=== PATIENT | male | born 1945 | race Caucasian/White ===

== ENCOUNTER 2022-07-06 15:00 | Outpatient (RCR) | payer MEDICARE, BC, SELFPAY ==
--- NOTE | 2022-03-05 14:12 | URNOTE ---
Received request for prior auth for Leuprolide ([id number]), Pt has primary Medicare. Prior auth is not required as services are based on medical necessity and follow medicare guidelines.
[2022-03-06 13:30] VITALS: BP 132/75; PULSE 69; RESP 14; TEMP 36.1; O2SAT 96
[2022-03-06 14:34] LABS: Basophils Absolute Auto 0.05 K/uL (0.00-0.30); Eosinophils Absolute Auto 0.37 K/uL (0.00-0.50); Hematocrit 39.1 % (37.0-53.0); Hemoglobin* 12.9 gm/dL (13.5-17.5); Immature Granulocytes Abs Auto 0.02 K/uL (0.00-0.30); Lymphocytes Percent Auto 18.7 % (20-44); Mean Corpuscular HGB Conc 33 gm/dL (32-36); Mean Corpuscular Hemoglobin 32 pg (26-34); Mean Corpuscular Volume 96 fL (80-100); Monocytes Percent Auto 8.8 % (0.0-11.0); Neutrophils Absolute Auto 3.37 K/uL (1.7-7.0); Neutrophils Percent Auto 64.1 % (42.0-72.0); Platelet Count* 212 K/uL (140-440); Red Blood Count 4.06 m/uL (4.30-5.90); White Blood Count* 5.25 K/uL (4.50-11.00)
[2022-03-06 14:40] LABS: Slide Review Reflex No
[2022-03-06 14:46] LABS: Chloride* 102 mmol/L (96-114)
[2022-03-06 14:47] LABS: Albumin* 4.4 g/dL (3.3-5.0); Potassium* 4.9 mmol/L (3.6-5.1); Sodium* 138 mmol/L (135-149)
[2022-03-06 14:49] LABS: Bilirubin Total* 0.4 mg/dL (0.1-1.5); Creatinine* 1.1 mg/dL (0.5-1.5); Est. Creatinine Clearance* 58.92; Estimated Glomerular Filt Rate 70 ml/min
[2022-03-06 14:50] LABS: Alanine Aminotransferase* 40 U/L (4-50); Alkaline Phosphatase* 116 U/L (40-150); Aspartate Amino Transferase* 36 U/L (12-35); Blood Urea Nitrogen* 30 mg/dL (7-30); Calcium* 9.2 mg/dL (8.4-10.6); Carbon Dioxide* 29 mmol/L (20-32); Glucose* 148 mg/dL (60-115); Total Protein* 7.5 g/dL (6.0-8.3)
[2022-03-06 15:35] LABS: PSA Diagnostic* < 0.06 ng/mL (0.10-4.00)
[2022-06-05 13:15] LABS: Basophils Percent Auto 0.9 % (0.0-3.0); Eosinophils Percent Auto 6.8 % (0.0-7.0); Hematocrit 38.8 % (37.0-53.0); Hemoglobin* 12.9 gm/dL (13.5-17.5); Immature Granulocytes Pct Auto 0.5 %; Lymphocytes Percent Auto 21.5 % (20-44); Mean Corpuscular HGB Conc 33 gm/dL (32-36); Mean Corpuscular Hemoglobin 32 pg (26-34); Mean Corpuscular Volume 96 fL (80-100); Monocytes Percent Auto 9.8 % (0.0-11.0); Neutrophils Percent Auto 60.5 % (42.0-72.0); Platelet Count* 186 K/uL (140-440); RDW Coefficient of Variation % 11.5 % (11.5-15.5); Red Blood Count 4.05 m/uL (4.30-5.90); White Blood Count* 4.38 K/uL (4.50-11.00)
[2022-06-05 13:18] LABS: Slide Review Reflex No
[2022-06-05 13:28] LABS: Albumin* 4.5 g/dL (3.3-5.0); Chloride* 103 mmol/L (96-114)
[2022-06-05 13:29] LABS: Sodium* 136 mmol/L (135-149)
[2022-06-05 13:31] LABS: Aspartate Amino Transferase* 43 U/L (12-35); Bilirubin Total* 0.6 mg/dL (0.1-1.5); Carbon Dioxide* 27 mmol/L (20-32); Creatinine* 1.2 mg/dL (0.5-1.5); Est. Creatinine Clearance* 54.01; Estimated Glomerular Filt Rate 63 ml/min; Total Protein* 7.3 g/dL (6.0-8.3)
[2022-06-05 13:32] LABS: Alanine Aminotransferase* 48 U/L (4-50); Alkaline Phosphatase* 128 U/L (40-150); Blood Urea Nitrogen* 35 mg/dL (7-30); Glucose* 150 mg/dL (60-115)
[2022-06-05 14:04] LABS: PSA Diagnostic* < 0.06 ng/mL (0.10-4.00)
== END 2022-09-02 23:59 | disposition home or self-care (01) ==
LOC: CCIC 15:00
PROVIDERS: Clinical Nurse Specialist; Visit Provider Internal Medicine Medical Oncology
DX: C61 Malignant neoplasm of prostate (principal); C79.51 Secondary malignant neoplasm of bone; Z79.818 Long term (current) use of other agents affecting estrogen receptors and estrogen levels; R73.09 Other abnormal glucose
CPT/HCPCS: 36415; 80053; 84153; 85025; 96401; 99212; 99214; 99215; J9217

== ENCOUNTER 2023-03-05 13:30 | Outpatient (RCR) | payer MEDICARE, SELFPAY ==
[2022-11-03 13:18] LABS: Basophils Absolute Auto 0.03 K/uL (0.00-0.30); Basophils Percent Auto 0.6 % (0.0-3.0); Eosinophils Absolute Auto 0.35 K/uL (0.00-0.50); Eosinophils Percent Auto 6.5 % (0.0-7.0); Hemoglobin* 13.7 gm/dL (13.5-17.5); Immature Granulocytes Abs Auto 0.01 K/uL (0.00-0.30); Immature Granulocytes Pct Auto 0.2 %; Lymphocytes Percent Auto 15.9 % (20-44); Mean Corpuscular HGB Conc 33 gm/dL (32-36); Mean Corpuscular Hemoglobin 32 pg (26-34); Mean Corpuscular Volume 95 fL (80-100); Monocytes Percent Auto 7.3 % (0.0-11.0); Neutrophils Absolute Auto 3.72 K/uL (1.7-7.0); Neutrophils Percent Auto 69.5 % (42.0-72.0); Platelet Count* 209 K/uL (140-440); RDW Coefficient of Variation % 11.8 % (11.5-15.5); Red Blood Count 4.32 m/uL (4.30-5.90); Slide Review Reflex No; White Blood Count* 5.35 K/uL (4.50-11.00)
[2022-11-03 13:20] VITALS: BP 151/84; PULSE 73; RESP 16; TEMP 35.9; O2SAT 96
[2022-11-03 13:55] LABS: Albumin* 4.5 g/dL (3.3-5.0); Chloride* 100 mmol/L (96-114); Potassium* 4.6 mmol/L (3.6-5.1); Sodium* 139 mmol/L (135-149)
[2022-11-03 13:57] LABS: Creatinine* 1.1 mg/dL (0.5-1.5); Estimated Glomerular Filt Rate 70 ml/min
[2022-11-03 13:58] LABS: Alanine Aminotransferase* 49 U/L (4-50); Alkaline Phosphatase* 101 U/L (40-150); Aspartate Amino Transferase* 42 U/L (12-35); Bilirubin Total* 0.8 mg/dL (0.1-1.5); Blood Urea Nitrogen* 27 mg/dL (7-30); Carbon Dioxide* 28 mmol/L (20-32); Glucose* 160 mg/dL (60-115)
[2022-11-03 13:59] LABS: Calcium* 9.4 mg/dL (8.4-10.6)
[2022-11-03 14:30] LABS: PSA Diagnostic* < 0.06 ng/mL (0.10-4.00)
--- NOTE | 2022-11-04 15:37 | PC.NURSE ---
pt called and LM requesting a call back with PSA result. RN called and LM on his primary voicemail per his request.
--- NOTE | 2023-02-09 15:49 | PC.NURSE ---
pt called and LM asking about when his next injection is scheduled. RN reviewed chart. Pt has no scheduled appointment and there are no active orders (either in the EMR or paper orders). Called back and LM asking pt to reach out to his radiation team re: whether or not he needs another injection and if so, to please send orders to [facility].
[2023-03-05 15:00] VITALS: BP 115/79; PULSE 88; RESP 14; TEMP 36.1
== END 2023-05-02 23:59 | disposition home or self-care (01) ==
LOC: CCIC 13:30
PROVIDERS: Visit Provider Internal Medicine Medical Oncology
DX: C61 Malignant neoplasm of prostate (principal); C79.51 Secondary malignant neoplasm of bone
CPT/HCPCS: 36415; 80053; 84153; 85025; 96401; J9217

== ENCOUNTER 2023-11-04 14:00 | Outpatient (RCR) | payer MEDICARE, SELFPAY ==
--- NOTE | 2023-06-04 12:42 | URNOTE ---
Received request for prior authorization for [facility]et[facility] ([id number]). Prior authorization is approved per [facility] with date range 06/02/2023 to 07/04/2024.
--- NOTE | 2023-06-07 12:53 | URNOTE ---
Received request for prior authorization for Leuprolide ([id number]). Prior Authorization is approved per [employer] [place] (Auth#[id number]) for Leuprolide date range 06/02/2023 to 07/04/2024.
[2023-07-06 14:39] LABS: Basophils Absolute Auto 0.04 K/uL (0.00-0.30); Basophils Percent Auto 0.7 % (0.0-3.0); Eosinophils Percent Auto 5.4 % (0.0-7.0); Hematocrit 41.4 % (37.0-53.0); Hemoglobin* 13.6 gm/dL (13.5-17.5); Immature Granulocytes Abs Auto 0.01 K/uL (0.00-0.30); Immature Granulocytes Pct Auto 0.2 %; Lymphocytes Percent Auto 17.6 % (20-44); Mean Corpuscular HGB Conc 33 gm/dL (32-36); Mean Corpuscular Hemoglobin 32 pg (26-34); Mean Corpuscular Volume 97 fL (80-100); Monocytes Percent Auto 9.3 % (0.0-11.0); Neutrophils Absolute Auto 3.68 K/uL (1.7-7.0); Neutrophils Percent Auto 66.8 % (42.0-72.0); Platelet Count* 216 K/uL (140-440); RDW Coefficient of Variation % 11.8 % (11.5-15.5); Red Blood Count 4.27 m/uL (4.30-5.90); White Blood Count* 5.51 K/uL (4.50-11.00)
[2023-07-06 14:50] LABS: Slide Review Reflex No
[2023-07-06 15:02] LABS: Albumin* 4.7 g/dL (3.3-5.0); Chloride* 102 mmol/L (96-114); Potassium* 5.4 mmol/L (3.6-5.1); Sodium* 139 mmol/L (135-149)
[2023-07-06 15:04] LABS: Bilirubin Total* 0.6 mg/dL (0.1-1.5); Creatinine* 1.1 mg/dL (0.5-1.5); Estimated Glomerular Filt Rate 70 ml/min
[2023-07-06 15:05] LABS: Alanine Aminotransferase* 32 U/L (4-50); Alkaline Phosphatase* 106 U/L (40-150); Anion Gap 10 mEq/L (7-15); Aspartate Amino Transferase* 32 U/L (12-35); Blood Urea Nitrogen* 32 mg/dL (7-30); Calcium* 9.3 mg/dL (8.4-10.6); Carbon Dioxide* 27 mmol/L (20-32); Glucose* 152 mg/dL (60-115); Total Protein* 7.8 g/dL (6.0-8.3)
[2023-07-06 15:31] LABS: PSA Diagnostic* < 0.06 ng/mL (0.10-4.00)
--- NOTE | 2023-07-26 10:45 | ONC.NURNOTE ---
Darren called to have his records faxed to [facility] to transfer his care. Director Of Consumer Marketing faxed records to Dr. San at [phone].
--- NOTE | 2023-11-08 12:00 | PC.NURSE ---
Addendum entered by Rosario Kelsey RN 11/08/23 14:03: Dr. Alexis reviewed RN notes and Dr. Posey notes. Dr. Alexis communicated with Dr. Posey. RN clarified with Darren that bone biopsy is NOT being scheduled/done, he confirmed this. His understanding was that the risk of missing the area in the LEFT acetabulum and L4 and getting a false negative was high, so biopsy was not recommended. Per Dr. 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 Dr. Posey is going to reach out to ortho to get LEFT ALLIE surgery scheduling underway. Pt will call [facility] with surgery date so f/u with Dr. Alexis can be scheduled after surgery. Original Note: Pt called today with an update. He saw Dr. Posey last week and it was decided that Lupyumiko would go on hold as he plans to have a LEFT hip replacement soon. Pt has had multiple scans to r/o bone mets and most recently he had a PSMA scan which he reviewed with Dr. Posey and it was determined that it's safe to proceed with hip surgery due to how much debility he has from his pain. Darren wanted Dr. Alexis to know about this plan. He doesn't have any follow-up scheduled with Dr. Alexis at this time. RN instructed pt to call when he has a surgery date and then we can set up a follow-up with MD a few weeks after that. Pt agrees with this plan. Supportive listening provided.
== END 2024-01-02 23:59 | disposition home or self-care (01) ==
LOC: CCIC 14:00
PROVIDERS: Internal Medicine Medical Oncology; Visit Provider Physician Assistant
DX: C61 Malignant neoplasm of prostate (principal)
CPT/HCPCS: 36415; 80053; 84153; 85025; 96401; 99212; 99214; J9217

== ENCOUNTER 2024-10-19 14:15 | Outpatient (RCR) | payer MEDICARE, SELFPAY ==
[2024-06-22 14:28] LABS: Basophils Absolute Auto 0.06 K/uL (0.00-0.30); Basophils Percent Auto 0.7 % (0.0-3.0); Eosinophils Absolute Auto 0.47 K/uL (0.00-0.50); Eosinophils Percent Auto 5.8 % (0.0-7.0); Hematocrit 32.4 % (37.0-53.0); Hemoglobin* 10.3 gm/dL (13.5-17.5); Immature Granulocytes Abs Auto 0.05 K/uL (0.00-0.30); Immature Granulocytes Pct Auto 0.6 %; Lymphocytes Percent Auto 8.5 % (20-44); Mean Corpuscular HGB Conc 32 gm/dL (32-36); Mean Corpuscular Hemoglobin 32 pg (26-34); Mean Corpuscular Volume 100 fL (80-100); Neutrophils Percent Auto 76.4 % (42.0-72.0); Platelet Count* 355 K/uL (140-440); RDW Coefficient of Variation % 13.1 % (11.5-15.5); Red Blood Count 3.25 m/uL (4.30-5.90); White Blood Count* 8.12 K/uL (4.50-11.00)
[2024-06-22 14:30] LABS: Slide Review Reflex No
[2024-06-22 14:47] LABS: Albumin* 3.9 g/dL (3.3-5.0)
[2024-06-22 14:50] LABS: Alanine Aminotransferase* 25 U/L (4-50); Alkaline Phosphatase* 132 U/L (40-150); Aspartate Amino Transferase* 37 U/L (12-35); Bilirubin Direct* 0.2 mg/dL (0.0-0.5); Bilirubin Total* 0.3 mg/dL (0.1-1.5); Total Protein* 6.6 g/dL (6.0-8.3)
[2024-06-22 15:26] LABS: PSA Diagnostic* < 0.06 ng/mL (0.10-4.00)
--- NOTE | 2024-06-26 12:49 | PC.NURSE ---
Pt called to request a refill of his tramadol. Pt recently had hip surgery and also is followed by a pain clinic. Per Darren, the pain clinic required a MD visit before giving him more. Pt was seen at [facility] recently so he wondered if we could refill it. RN explained why we cannot and instructed pt to call his PCP or his orthopedic surgeon. Pt reports that his biggest issues right now are surgery pain related. Supportive listening provided.
--- NOTE | 2024-10-05 10:03 | URNOTE ---
Prior auth is not required for Leuprolide (J9217) per [employer]
--- NOTE | 2024-10-10 10:59 | ONC.NURNOTE ---
Pt called today with new concerns of diarrhea x ~1 week. Ultimately, pt is concerned about the diarrhea for two reasons. First, he hasn't been getting Eligard injections so worries this is a sign that his prostate cancer is recurring. Secondly, he is scheduled for a urologic procedure later this week at [facility] to help with his urinary incontinence. We discussed that Darren was due for labs, provider visit, and Eligard injection yesterday, however, he cancelled. Darren states that his instructed him to cancel as they were worried about the long drive from [place] given his current diarrhea issues. We discussed that diarrhea is not a typical symptom of prostate cancer recurrence. Pt agrees. He is very concerned about his PSA levels as it hasn't been checked in a while. He asked questions about how fast PSA levels can rise if there's a recurrence, RN deferred this question to JUAN/MD. Of note, pt has cancelled several of his last appointments at [facility]. RN then asked pt if there are any other reasons for his diarrhea. He mentioned that he took Amoxicillin for a dental extraction ~2 weeks ago. RN asked if he had taken any anti-diarrheal medications, he has not. Darren was then directed to call his PCP to report his diarrhea. We discussed that there may need to be some work up for his diarrhea given recent antibiotics. Ultimately this needs to be directed by his PCP. RN advised pt NOT to take any antidiarrheals until AFTER talking to his PCP. Darren is concerned about his upcoming surgery. Advised pt to discuss these concerns with his PCP. Darren is scheduled for labs/JUAN visit/Eligard injection next week on 10/19/2024. Reviewed and confirmed these appointments with Darren. He verbalized understanding. Supportive listening provided.
[2024-10-19 12:28] LABS: Basophils Absolute Auto 0.06 K/uL (0.00-0.30); Eosinophils Percent Auto 9.1 % (0.0-7.0); Hematocrit 37.7 % (37.0-53.0); Hemoglobin* 12.3 gm/dL (13.5-17.5); Immature Granulocytes Abs Auto 0.08 K/uL (0.00-0.30); Immature Granulocytes Pct Auto 1.4 %; Lymphocytes Percent Auto 13.9 % (20-44); Mean Corpuscular HGB Conc 33 gm/dL (32-36); Mean Corpuscular Hemoglobin 32 pg (26-34); Mean Corpuscular Volume 97 fL (80-100); Monocytes Percent Auto 8.4 % (0.0-11.0); Neutrophils Percent Auto 66.2 % (42.0-72.0); Platelet Count* 266 K/uL (140-440); RDW Coefficient of Variation % 12.4 % (11.5-15.5); Red Blood Count 3.88 m/uL (4.30-5.90); White Blood Count* 5.74 K/uL (4.50-11.00)
[2024-10-19 12:41] LABS: Albumin* 4.3 g/dL (3.3-5.0)
[2024-10-19 12:44] LABS: Alanine Aminotransferase* 39 U/L (4-50); Alkaline Phosphatase* 101 U/L (40-150); Aspartate Amino Transferase* 47 U/L (12-35); Bilirubin Direct* 0.3 mg/dL (0.0-0.5); Bilirubin Total* 0.8 mg/dL (0.1-1.5); Slide Review Reflex No; Total Protein* 7.4 g/dL (6.0-8.3)
[2024-10-19 14:15] LABS: PSA Diagnostic* < 0.06 ng/mL (0.10-4.00)
== END 2024-12-19 23:59 | disposition home or self-care (01) ==
LOC: CCIC 14:15
PROVIDERS: Visit Provider Physician Assistant
DX: C61 Malignant neoplasm of prostate (principal); C79.51 Secondary malignant neoplasm of bone; M85.80 Other specified disorders of bone density and structure, unspecified site; E11.59 Type 2 diabetes mellitus with other circulatory complications; I15.2 Hypertension secondary to endocrine disorders; Z80.42 Family history of malignant neoplasm of prostate
CPT/HCPCS: 36415; 80076; 84153; 85025; 99214; 99215; G0463

== ENCOUNTER 2025-01-25 09:18 | Outpatient (CLI) | payer MEDICARE, SELFPAY | END 2025-01-25 09:19 | disposition home or self-care (01) | LOC: WOUND 09:19 | PROVIDERS: Referring Provider Urology; Visit Provider Nurse Practitioner Family | DX: N30.41 Irradiation cystitis with hematuria (principal); E11.9 Type 2 diabetes mellitus without complications; Z79.84 Long term (current) use of oral hypoglycemic drugs; Y84.2 Radiological procedure and radiotherapy as the cause of abnormal reaction of the patient, or of later complication, without mention of misadventure at the time of the procedure | CPT/HCPCS: G0463 ==

== ENCOUNTER 2025-02-15 08:30 | Outpatient (RCR) | payer MEDICARE, SELFPAY | END 2025-02-15 23:59 | disposition home or self-care (01) | LOC: WOUND 08:30 | PROVIDERS: Visit Provider Nurse Practitioner Family | DX: N30.41 Irradiation cystitis with hematuria (principal); E11.9 Type 2 diabetes mellitus without complications; Y84.2 Radiological procedure and radiotherapy as the cause of abnormal reaction of the patient, or of later complication, without mention of misadventure at the time of the procedure; Z79.84 Long term (current) use of oral hypoglycemic drugs; C61 Malignant neoplasm of prostate; C79.51 Secondary malignant neoplasm of bone; M85.80 Other specified disorders of bone density and structure, unspecified site; Z80.42 Family history of malignant neoplasm of prostate | CPT/HCPCS: 82962; G0277 ==

== ENCOUNTER 2025-02-20 12:57 | Outpatient (CLI) | payer MEDICARE, SELFPAY | END 2025-02-20 12:58 | disposition home or self-care (01) | LOC: WOUND 12:58 | PROVIDERS: Visit Provider Nurse Practitioner Family | DX: E11.9 Type 2 diabetes mellitus without complications (principal); Y84.2 Radiological procedure and radiotherapy as the cause of abnormal reaction of the patient, or of later complication, without mention of misadventure at the time of the procedure; Z79.84 Long term (current) use of oral hypoglycemic drugs; N30.41 Irradiation cystitis with hematuria | CPT/HCPCS: 82962; G0277; G0463 ==

== ENCOUNTER 2025-03-12 13:30 | Outpatient (RCR) | payer MEDICARE, SELFPAY | END 2025-03-18 23:59 | disposition home or self-care (01) | LOC: WOUND 13:30 | PROVIDERS: Visit Provider Nurse Practitioner Family | DX: N30.41 Irradiation cystitis with hematuria (principal); E11.9 Type 2 diabetes mellitus without complications; Y84.2 Radiological procedure and radiotherapy as the cause of abnormal reaction of the patient, or of later complication, without mention of misadventure at the time of the procedure; Z79.84 Long term (current) use of oral hypoglycemic drugs | CPT/HCPCS: 82962; G0277 ==